=== PATIENT | female | born 1990 | race Caucasian/White ===

== ENCOUNTER 2023-02-01 14:41 | Outpatient (CLI) | payer OTHER | END 2023-02-01 14:42 | disposition home or self-care (01) | LOC: BICRAD 14:41 | PROVIDERS: ATTEND Nurse Practitioner Family | DX: Z00.00 Encounter for general adult medical examination without abnormal findings (principal); M25.551 Pain in right hip | CPT/HCPCS: 36415; 80053; 80061; 80074; 82306; 84443; 85025; 86780; 87389; 87591 ==